=== PATIENT | male | born 1965 | race Caucasian/White ===

== ENCOUNTER 2020-07-28 16:51 | Inpatient (IN) | payer OTHER ==
[~2020-07-28] VITALS: Ht 177.8 cm; Wt 65.3 kg
[2020-07-29] MEDS ORDERED: BISACODYL10 MG RECTAL (05:20)
[2020-07-29] MEDS ORDERED: LORAZEPAM 0.50.5 MG PO (05:20)
[2020-07-29] MEDS ORDERED: NORCO 10-325 T1 EACH PO (05:21)
[2020-07-29] MEDS ORDERED: HYDROCODONE PO (05:23)
[2020-07-29] MEDS ORDERED: ATIVAN1 M1 PO (05:24)
[2020-07-29] MEDS ORDERED: NICOTINE TRANSD14 M1 TOP (05:24)
[2020-07-29] MEDS ORDERED: OXYBUTYNIN CHLO15 MG PO (05:28)
[2020-07-29] MEDS ORDERED: BASE B,POLYETHYL1 GM PO (05:29)
[2020-07-29] MEDS ORDERED: REMERON15 M2 PO (05:29)
[2020-07-29 05:40] VITALS: BP 123/84
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
[2020-07-29 08:40] VITALS: BP 132/65
--- NOTE | 2020-07-29 08:41 | NUR ---
PT IN RANDA CHAIR RESTING WITH EYES CLOSED. PT SEDATED FROM GEODON GIVEN EARILER. PT LUNGS SOUND COURSE THROUGH OUT. PT SAT RUNNING 93-96%. PT HAS SCABS TO KNEES BILATERALY FROM PREVIOUS FALLS. ENCOURAGED PT TO COUGH TO HELP CLEAR LUNG ORDONEZ. PT TOO SLEEPY TO COUGH FORCEFULLY.
[2020-07-29 09:06] LABS: ALBUMIN 2.6 g/dL (3.4-5.0); DIRECT BILIRUBIN < 0.1 mg/dL (<0.1-0.2); SGOT 14 U/L (15-37); SGPT 31 U/L (30-65); TOTAL BILIRUBIN 0.3 mg/dL (0.2-1.0); TOTAL PROTEIN 6.7 g/dL (6.4-8.2)
[2020-07-29 09:59] VITALS: BP 132/65
--- NOTE | 2020-07-29 15:00 | NUR ---
GAVE PT A DULCOLAX SUPP 10MG FOR CONSTIPATION. PT GETTING CHEST XRAY AT THIS TIME.
--- NOTE | 2020-07-29 15:10 | NUR ---
PT UP TO BSC X2 STAFF. PT HAD ALOT OF GAS OUT. PT PUT BACK TO BED. PT YELLING FOR HIS MOM AND CRYING WANTING TO SEE HER. PT YELLING FOR GOD TO HELP HIM. NOTICED PT LYING ON HIS BACK HIGHER THAN 30 DEGREES AND HE WAS COUGHING AND TRYING TO GET SPUTUM UP, PT THROAT AREA WAS TURNING RED. PT HAS HX OF TRACH. RAISED PT HOB UP HIGHER FAR IT CAN GO.
--- NOTE | 2020-07-29 16:00 | NUR ---
ASSISTED PT WITH GETTING SOME SOLID STOOL OUT OF RECTUM. PT STATED HIS BUTT HURTS. PT POSS HAS A SMALL HEMMORROID. PT WANTING MILK TO DRINK THAT WILL HELP HIM WITH STOOL. GAVE PT HONEY THICK MILK AND ADDED MIRALAX POWDER AND ALSO ADM MILK OF MAG. PT DRANK WITHOUT ANY ISSUES.
--- NOTE | 2020-07-29 17:38 | NUR ---
PT HAD LARGE BM IN BSC. PT STATED HE FELT BETTER. PT ABLE TO EAT PUREED DIET. PT ABLE TO COUGH AND CLEAR SECRETION. PT STILL WANTING TO TALK TO HIS MOM.
[2020-07-29 20:34] VITALS: BP 97/52
--- NOTE | 2020-07-29 23:46 | NUR ---
SENIOR COST ANALYST ACTIVATED AT 2320. ARRIVED TO UNIT AT 2323 TO FIND PATIENT ON LEFT SIDE WITH BLOODY EMESIS ON BED AND PATIENT. PER RN, MANUAL COMPRESSIONS GIVEN PRIOR TO RAPID RESPONSE TEAM ARRIVAL. PT WITH SPONTANEOUS PULSE AND RESPIRATIONS AT THAT TIME. CRASH CART OBTAINED AND PT PLACED ON MONITOR WITH ST RHYTHM. PT BEGINNING AGONAL RESPS AT 2325. RT AT BEDSIDE AND BEGAN TO BAG PATIENT. CODE BLUE ACTIVATED. SEE CODE BLUE FLOWSHEET FOR ADDITIONAL DETAILS. PT TX'D TO ICU.
[2020-07-29 23:55] VITALS: BP 97/52
--- NOTE | 2020-07-30 00:06 | NUR ---
Assumed care of patient at 1900. Pt in dining room during early part of shift sitting in chair at table. Pt cooperative with nursing assessment and medications. Pt takes medications whole with honey thickened liquids. Pt breathing at time of assessment was nonlabored. Pt lung sounds coarse bilaterally in lower lobes. Pt yelling out off and on throughout evening wanting non-thickened milk. Explained to pt that orders were for him to have honey-thickened liquids, risk for aspiration with thin liquids. Pt continued to be aggitated and anxious, upset stating he wanted to leave and his sister put him here. At time of shift assessment pt denied having any pain. Continued to become increasingly aggitated/anxious as evening progressed focused on wanting milk. Offered honey thickened milk and other appropriate liquids of honey consistency and pt declined, stating that he did not like the taste. When unable to redirect and get patient to stop yelling/decrease aggitation, PRNs for Haldol 5 mg and ativan 0.5 mg given per orders for aggitation and anxiety. Pt took PRNS whole with sips of honey thickened water @ 2212. Pt wanting to lay down and go to his room at approximately 2220. Pt assisted by digital recruiter to room and assisted to bed and with pericares. digital recruiter reported to this nurse that pt was coughing up thick phelgm. When this nurse went to assess and assist, pt was observed coughing up thick brownish colored phelgm. Pt repositioned to a higher sitting position. Pt continued to cough and coughing up coffee ground emesis. Pt lungs course. Pt c/o stomach pain and back pain, and continued to cough up coffee ground emesis. Charge nurse notified of rapid change of condition of pt. Charge nurse called rapid response. Pt then started to slump further down in bed and continued to cough up coffee ground colored emesis, struggling to clear air way. This nurse and ROPE MAKING MACHINE OPERATOR attempted to reposition to help pt clear air way. Pt then started to go unresponsive at approximately 2235; pt turned onto left side to prevent aspiration. Pt lost pulse and face began turning blue. CPR initiated by charge nurse with chest compressions and pulse regained. Jim oquendo called. Code team to unit and took over care of pt. Pt transferred to ICU. Pt sister notified at 2352 of pts change of condition and transfer to ICU. Dr Dover notified and discharge orders received by charge nurse at 0015. This nurse gave report to ICU nurse Allison at 0025.
--- NOTE | 2020-07-30 09:07 | EKG ---
[address] [address] ELECTROCARDIOGRAM REPORT Name: NOEMY BROOKS Room #: 526B-B DIS IN M.R.#: [id number] Admission: 07/29/20 Attend Phys: Dali Dover MD Discharge: 07/29/20 Date of : 61 Report #: [id number] [facility] Test Date: 2020-07-30 Test Time: 00:02:52 Pat Name: NOEMY BROOKS Department: Room: [facility] B Gender: M Tree Killer: EW : 1965 Requested By: Jessi Flores Order Number: [id number] MD: Luisito Stewart Measurements Intervals [place] Rate: 141 P: 65 [place]: 99 QRS: 90 QRSD: 76 T: QT: 256 QTc: 392 Interpretive Statements Sinus tachycardia Motion artifact No previous ECG available for comparison Electronically Signed On 07-30-2020 9:06:58 COMPLETIONS ENGINEER by Luisito Stewart [email or web address] <ELECTRONICALLY SIGNED> By: Luisito Stewart MD 07/30/20 0906 0002 0002 Luisito Stewart MD /LIZET
== END 2020-07-29 23:45 | disposition short-term general hospital (02) | DRG 884 ==
LOC: SBH → EROBS 07-29 04:04 → SBH 07-29 05:37
PROVIDERS: Nurse Practitioner Family; ADMIT Internal Medicine; ATTEND Psychiatry & Neurology Psychiatry
DX: F01.51 Vascular dementia, unspecified severity, with behavioral disturbance (principal); G91.2 (Idiopathic) normal pressure hydrocephalus; N40.0 Benign prostatic hyperplasia without lower urinary tract symptoms; G89.29 Other chronic pain; R13.10 Dysphagia, unspecified; G40.909 Epilepsy, unspecified, not intractable, without status epilepticus; Z87.820 Personal history of traumatic brain injury; Z79.899 Other long term (current) drug therapy
CPT/HCPCS: 10880

== ENCOUNTER 2020-07-28 19:59 | Emergency (ER) | payer OTHER ==
[~2020-07-28] VITALS: Ht 182.9 cm; Wt 77.1 kg
[2020-07-28 20:13] VITALS: BP 118/77
[2020-07-28 22:00] LABS: CALCIUM 8.7 mg/dL (8.5-10.1); CREATININE 0.7 mg/dL (0.7-1.3); POTASSIUM 4.3 mmol/L (3.5-5.1)
[2020-07-28 22:01] LABS: URINE BILIRUBIN NEGATIVE (Negative); URINE BLOOD NEGATIVE (Negative); URINE CLARITY CLOUDY; URINE COLOR YELLOW; URINE GLUCOSE-RANDOM* NEGATIVE (Negative); URINE KETONES NEGATIVE (Negative); URINE LEUKOCYTES-REFLEX NEGATIVE (Negative); URINE NITRITE-REFLEX NEGATIVE (Negative); URINE PROTEIN (DIPSTICK) NEGATIVE (Negative)
[2020-07-28 22:02] LABS: ABSOLUTE NEUTROPHILS 7.6 thou/uL (1.4-8.2); BASOPHILS 0.5 % (0.0-2.0); EOSINOPHILS 0.6 % (0.0-3.0); HEMATOCRIT 32.2 % (42.0-52.0); HEMOGLOBIN 10.6 gm/dL (14.0-18.0); LYMPHOCYTES 12.1 % (24.0-44.0); MCH 30.5 pg (26.0-34.0); MCHC 32.9 g/dL (28.0-37.0); MCV 92.9 fL (80.0-100.0); MONOCYTES 8.6 % (1.0-8.0); PLATELET COUNT 377 thou/uL (150-400); POLYS 78.2 % (36.0-66.0); RBC 3.46 mil/uL (4.50-6.00); RDW 13.7 % (10.5-14.5); WBC 9.7 thou/uL (4.0-11.0)
[2020-07-29] MEDS ORDERED: BISACODYL10 MG RECTAL (05:20)
[2020-07-29] MEDS ORDERED: LORAZEPAM 0.50.5 MG PO (05:20)
[2020-07-29] MEDS ORDERED: NORCO 10-325 T1 EACH PO (05:21)
[2020-07-29] MEDS ORDERED: HYDROCODONE PO (05:23)
[2020-07-29] MEDS ORDERED: ATIVAN1 M1 PO (05:24)
[2020-07-29] MEDS ORDERED: NICOTINE TRANSD14 M1 TOP (05:24)
[2020-07-29] MEDS ORDERED: OXYBUTYNIN CHLO15 MG PO (05:28)
[2020-07-29] MEDS ORDERED: REMERON15 M2 PO (05:29)
[2020-07-29] MEDS ORDERED: BASE B,POLYETHYL1 GM PO (05:29)
[2020-07-29 06:17] VITALS: BP 123/76
== END 2020-07-29 05:22 ==
LOC: ER 19:59 → EROBS 07-29 04:20 → ER 07-29 05:22
PROVIDERS: Emergency Medicine
DX: F91.9 Conduct disorder, unspecified (principal); R41.0 Disorientation, unspecified; R45.1 Restlessness and agitation; F17.210 Nicotine dependence, cigarettes, uncomplicated; Z20.822 Contact with and (suspected) exposure to COVID-19

== ENCOUNTER 2020-07-29 23:59 | Inpatient (IN) | payer OTHER ==
[~2020-07-29] VITALS: Ht 175.3 cm; Wt 74.0 kg
--- NOTE | ~2020-07-29 | EEG ---
[facility] [place] [address] ELECTROENCEPHALOGRAM Name: NOEMY BROOKS Room #: 238-P ADM IN M.R.#: [id number] Admission: 07/29/20 Attend Phys: Dov Severino MD Discharge: Date of : 61 Report #: [id number] THIS REPORT FOR: //name// DATE OF SERVICE: 08/04/2020 INTERPRETATION: This patient is being evaluated for altered mental status. EEG was done by placing the electrode by standard 10-20 system of electrode placement. Both referential and sequential montages were used for recording. Background activity in this patient's EEG is about 7 Hz and 15 microvolt. Photic stimulation is unremarkable. No active epileptiform activity was noticed. IMPRESSION: This patient's EEG does not demonstrate any active epileptiform activity. EEG is slow, which is nonspecific finding, which can occur with encephalopathy, effect of psychotropic medication, dementia, drowsiness, etc. Clinical correlation is recommended. Thank you very much for this referral. By: 1020 1032 Vikas Garcia MD /nt
[2020-07-29 23:49] VITALS: BP 158/83
[2020-07-29 23:58] VITALS: BP 112/88
[~2020-07-29 23:59] MED LIST: ATIVAN1 M1 PO; BASE B,POLYETHYL1 GM PO; BISACODYL10 MG RECTAL; HYDROCODONE PO; LORAZEPAM 0.50.5 MG PO; NICOTINE TRANSD14 M1 TOP; NORCO 10-325 T1 EACH PO; OXYBUTYNIN CHLO15 MG PO; REMERON15 M2 PO
[2020-07-30] VITALS (96 sets, daily range): BP systolic 78–130; BP diastolic 42–100
[2020-07-30 00:12] LABS: BE(vivo) -0.5 mmol/L (-2 to +3); HCO3 27.5 mmol/L (22.0-26.0); PO2 500.3 mmHg (80.0-100.0); pH 7.265 (7.360-7.450); sO2 99.8 % (92.0-98.0)
[2020-07-30 02:10] LABS: CALCIUM 8.8 mg/dL (8.5-10.1); HEMATOCRIT 38.2 % (42.0-52.0); HEMOGLOBIN 11.7 gm/dL (14.0-18.0); MAGNESIUM 2.6 mg/dL (1.8-2.4); MCH 29.7 pg (26.0-34.0); MCHC 30.6 g/dL (28.0-37.0); MCV 97.3 fL (80.0-100.0); POTASSIUM 4.7 mmol/L (3.5-5.1); RBC 3.93 mil/uL (4.50-6.00); RDW 14.5 % (10.5-14.5); WBC 23.5 thou/uL (4.0-11.0)
[2020-07-30 02:14] LABS: ALBUMIN 2.8 g/dL (3.4-5.0); DIRECT BILIRUBIN < 0.1 mg/dL (<0.1-0.2); SGOT 25 U/L (15-37); SGPT 34 U/L (16-63); TOTAL BILIRUBIN 0.2 mg/dL (0.2-1.0); TOTAL PROTEIN 7.2 g/dL (6.4-8.2)
[2020-07-30 02:18] LABS: INR 1.1; PROTIME 10.8 Seconds (9.3-11.4)
--- NOTE | 2020-07-30 03:36 | NUR ---
2326 - HENRIQUE CANADA CALLED ON SENIOR BEHAVIOR SUITS. THIS RN RESPONDED TO THE CODE. PT WAS FOUND UNRESPONSIVE BUT WITH A PULSE, COVERED IN COFFEE GROUND EMESIS. DR. CARDOZA, KAYY SHERMAN, HALVER MACHINE OPERATOR, MULTIPLE RT'S AND RN'S ALL PRESENT AT BEDSIDE. IV ACCESS ESTABLISHED AND PT INTUBATED BY DR. CARDOZA. REFER TO HENRIQUE BLUE SHEET. 2347 - PT TRANSFERED TO ICU ROOM 238 VIA THIS RN, HALVER MACHINE OPERATOR AND RTGRISELDA. PT CONNECTED TO ICU MONIOR, SHOWING SINUS TACHYCARDIA, CONFIRMED BY EKG. PT ASSESSED VIA ICU PROTOCOL. KAYY SHERMAN AT BEDSIDE GIVING ORDERS. PT RESTLESS AND AGITATED. PT RESTRAINED AND SEDATED VIA PROPOFOL AND VERSED GTT. 0020 - XRAY AT BEDSIDE OBTAINING CHEST XRAY TO CONFIRM ETT AND OGT PLACEMENT. 0150 - DR. VOGEL CONSULTED. CRITICAL ABG'S VERBALIZED TO PHYSICIAN. NO CHANGES ORDERED IN VENT SETTINGS. DR. VOGEL WILL SEE PT IN AM. SEED SPECIALIST ON SENIOR BEHAVIOR SUITS SPOKE WITH PTS SISTER (SEGUNDO) AND UPDATED ON THE EVENTS THAT OCCURRED AND PTS NEW ROOM NUMBER IN THE ICU.
[2020-07-30 09:17] LABS: HEMATOCRIT 29.1 % (42.0-52.0); MCH 30.4 pg (26.0-34.0); MCHC 32.5 g/dL (28.0-37.0); MCV 93.7 fL (80.0-100.0); RBC 3.11 mil/uL (4.50-6.00); WBC 15.6 thou/uL (4.0-11.0)
[2020-07-30 09:25] LABS: CREATININE 0.7 mg/dL (0.7-1.3); POTASSIUM 3.8 mmol/L (3.5-5.1)
[2020-07-30 09:46] LABS: HEMOGLOBIN 9.4 gm/dL (14.0-18.0)
--- NOTE | 2020-07-30 10:31 | NUR ---
NOTED HYPOTENSION WITH MAP <65. DR. KNUTSON UPDATED ABOUT BLOOD PRESSURES AND DROP IN HGB. ORDERS FOR 1L FLUID BOLUS AND TO START LEVOPHED IF NEEDED.
--- NOTE | 2020-07-30 11:56 | NUR ---
ECHO DONE. TELEPHONE CONSENT FROM SISTER SEGUNDO FOR EGD AND PICC LINE PLACEMENT.
--- NOTE | 2020-07-30 13:19 | NUR ---
CONSULTED TO PLACE A PICC FOR A PATIENT IN ICU ON LEVOPHED. ORDER AND CONSENT NOTED. A #5F TRIPLE LUMEN POWER PICC WAS PLACED PER POLICY AFTER A BEDSIDE TIMEOUT WAS COMPLETED. THE LINE WAS TRIMMED TO 37CM AND ADVANCED WITHOUT DIFFICULTY. A STAT CHEST XRAY WAS ORDERED FOR CONFIRMATION
--- NOTE | 2020-07-30 14:34 | NUR ---
SPOKE WITH DR. VOGEL AND DR. LUCIA ABOUT PATIENT, NOTED PATIENT HAD ABDOMINAL CT LAST NIGHT BUT WAS UNDER OLD ACCOUNT FOR 5S. NOTED FINDINGS OF CT, ORDERS FOR 1 BOTTLE MAG CITRATE TO BE GIVEN.
--- NOTE | 2020-07-30 16:38 | 2DMMODE ---
[facility] [place] [address] 2 D/M-MODE ECHOCARDIOGRAM Name: NOEMY BROOKS Room #: 238-P ADM IN M.R.#: [id number] Admission: 07/29/20 Attend Phys: Lurdes Goss MD Discharge: Date of : 61 Report #: [id number] THIS REPORT FOR: cc: [facility] - Clinic physician unknown [facility] - Clinic physician unknown Luisito Stewart MD ~ APPROVED REPORT Study performed: 07/30/2020 11:26:27 EXAM: Comprehensive 2D, Doppler, and color-flow Echocardiogram Patient Location: Bedside Room #: 238 Status: on-call BSA: 1.83 HR: 11 bpm BP: 97/58 mmHg Rhythm: NSR Other Information Study Quality: Adequate Indications Respiratory Arrest 2D Dimensions IVSd: 8.03 (7-11mm) LVOT Diam: 19.00 (18-24mm) LVDd: 38.29 mm PWd: 10.02 (7-11mm) Ascending Ao: 26.43 (22-36mm) LVDs: 26.14 (25-40mm) Aortic Root: 27.75 mm LV Single Plane 4CH: 68.53 % LV Single Plane 2CH: 70.01 % Volumes Left Atrial Volume (Systole) Single Plane 4CH: 25.24 mL Single Plane 2CH: 26.69 mL LA ESV Index: 15.00 mL/m2 Aortic Valve AoV Peak Santy.: 1.94 m/s AO Peak Gr.: 15.13 mmHg LVOT Max P.91 mmHg LVOT Max V: 1.41 m/s PHONG Vmax: 1.97 cm2 [facility] [address] [place] [address] 2 D/M-MODE ECHOCARDIOGRAM Name: NOEMY BROOKS Room #: 238-P [facility] IN .R.#: [id number] Admission: 07/29/20 Attend Phys: Ximena Pope Discharge: Date of : 61 Report #: [id number] Mitral Valve E/A Ratio: 0.8 MV Decel. Time: 110.84 ms MV E Max Santy.: 1.02 m/s MV A Santy.: 1.21 m/s MV PHT: 32.14 ms IVRT: 55.36 ms TDI E/Lateral E': 12.75 E/Medial E': 9.27 Medial E' Santy.: 0.11 m/s Lateral E' Santy.: 0.08 m/s Pulmonary Valve PV Peak Santy.: 1.81 m/s PV Peak Gr.: 13.08 mmHg Pulmonary Vein P Vein S: 0.94 m/s P Vein A: 0.49 m/s P Vein D: 0.61 m/s P Vein A Dur.: 80.7 msec P Vein S/D Ratio: 1.54 Tricuspid Valve TR Peak Santy.: 2.99 m/s RAP Estimate: 10.00 mmHg TR Peak Gr.: 35.69 mmHg PA Pressure: 46.00 mmHg Left Ventricle The left ventricle is normal size. There is normal LV segmental wall motion. There is normal left ventricular wall thickness. Left ventricular systolic function is normal. The left ventricular ejection fraction is within the normal range. LVEF is 65-70%. Mild diastolic dysfunction is present (impaired relaxation pattern). Right Ventricle The right ventricle is normal size. The right ventricular systolic function is normal. Atria The left atrium size is normal. The right atrium size is normal. Aortic Valve The aortic valve is normal in structure. No aortic regurgitation is present. There is no aortic valvular stenosis. [facility] [address] [place] [address] 2 D/M-MODE ECHOCARDIOGRAM Name: NOEMY BROOKS Room #: 238-P [facility] IN M.R.#: [id number] Admission: 07/29/20 Attend Phys: Ximena Pope Discharge: Date of : 61 Report #: [id number] Mitral Valve The mitral valve is normal in structure. There is no mitral valve regurgitation noted. No evidence of mitral valve stenosis. Tricuspid Valve The tricuspid valve is normal in structure. Trace tricuspid regurgitation. Pulmonary artery pressure is 46 mmHg. Pulmonic Valve The pulmonary valve is normal in structure. There is no pulmonic valvular regurgitation. Great Vessels The aortic root is normal in size. The ascending aorta is normal in size. IVC is dilated and collapses <50% with inspiration. Pericardium There is no pericardial effusion. <Conclusion> The left ventricle is normal size. There is normal left ventricular wall thickness. There is normal LV segmental wall motion. Left ventricular systolic function is normal. The left ventricular ejection fraction is within the normal range. LVEF is 65-70%. The right ventricle is normal size. The right ventricular systolic function is normal. The aortic valve is normal in structure. No aortic regurgitation is present. There is no aortic valvular stenosis. The mitral valve is normal in structure. There is no mitral valve regurgitation noted. No evidence of mitral valve stenosis. The tricuspid valve is normal in structure. Trace tricuspid regurgitation. Pulmonary artery pressure is 46 mmHg. There is no pericardial effusion. <ELECTRONICALLY SIGNED> By: Luisito Stewart MD 07/30/20 1638 1638 1638 Luisito Stewart MD /INF
[2020-07-31] VITALS (29 sets, daily range): BP systolic 106–144; BP diastolic 56–74
[2020-07-31 04:45] LABS: HEMATOCRIT 27.4 % (42.0-52.0); HEMOGLOBIN 8.8 gm/dL (14.0-18.0); MCH 30.2 pg (26.0-34.0); MCHC 32.2 g/dL (28.0-37.0); RBC 2.92 mil/uL (4.50-6.00); RDW 14.4 % (10.5-14.5); WBC 23.9 thou/uL (4.0-11.0)
--- NOTE | 2020-07-31 06:00 | NUR ---
PT TOLERATING VENT, HR DECREASIN TO 70'S AND MAINTAINING. SECRETIONS SLOWING DOWN, TOLERATING SEDATION, ABLE TO TITRATE LEVO
[2020-07-31 06:56] LABS: CALCIUM 7.7 mg/dL (8.5-10.1); CREATININE 0.6 mg/dL (0.7-1.3); MAGNESIUM 2.5 mg/dL (1.8-2.4); POTASSIUM 4.3 mmol/L (3.5-5.1)
--- NOTE | 2020-07-31 11:47 | NUR ---
PATIENT HAD BEDSIDE EGD DONE BY DR. LUCIA WITH GI NURSES PRESENT. ULCER NOTED, POSSIBLE PERFORATION. ORDERS FOR CT, PATIENT WILL BE TAKEN SOON RESPIRATORY THERAPIST IS AVAILABLE FOR VENT TRANSPORT. PATIENT REMAINS SEDATED ON PROPOFOL AND VERSED GTTS. LEVOPED GTT FOR BLOOD PRESSURE SUPPORT. SPOKE WITH SISTER (ALHAJI) PRIOR TO EGD AND WILL UPDATE POST CT SCAN.
--- NOTE | 2020-07-31 19:12 | NUR ---
UPDATED SISTER ON RESULTS OF EGD AND NOT ORDERS FOR CT OF CHEST. PATIENT VSS REMAIN STABLE THROUGH OUT THE REST OF SHIFT. TITRATED DOWN LEVO GTT TO 8 FROM 12. SALINE ENEMA GIVEN PER DR. VOGEL.
--- NOTE | 2020-07-31 23:15 | NUR ---
2017-PT'S EX- ANA LUISA, WHO HE HAS A SON WITH, CALLED FOR AN UPDATE ABOUT PT; SHE WAS ABLE TO GIVE HIS FOUR-DIGIT CODE AND REPORTED SHE HAD PERMISSION FROM SEGUNDO TO CALL ABOUT HIM. SHE VOICED CONCERNS ABOUT THEIR SON, WHO WAS WORRIED AND RECEIVING PIECEMEAL INFORMATION. DID EXPLAIN THAT WE TRY TO LIMIT TO ONE DESIGNATED COMMUNICATOR TO STREAMLINE CARE/COMMUNICATIONS, BUT SINCE SHE HAD THE CODE, WENT AHEAD AND GAVE A BRIEF UPDATE ON PT'S CONDITION. ANA LUISA WAS VERY PLEASANT AND UNDERSTANDING, AND APPRECIATED HAVING A MORE CLEAR PICTURE TO SHARE WITH PT'S SON.
[2020-08-01] VITALS (57 sets, daily range): BP systolic 105–129; BP diastolic 55–77
[2020-08-01 05:45] LABS: HEMATOCRIT 24.5 % (42.0-52.0); HEMOGLOBIN 7.9 gm/dL (14.0-18.0); MCH 30.7 pg (26.0-34.0); MCHC 32.5 g/dL (28.0-37.0); MCV 94.6 fL (80.0-100.0); RBC 2.59 mil/uL (4.50-6.00); RDW 14.3 % (10.5-14.5); WBC 20.1 thou/uL (4.0-11.0)
[2020-08-01 06:03] LABS: CALCIUM 7.7 mg/dL (8.5-10.1); CREATININE 0.5 mg/dL (0.7-1.3)
[2020-08-01 06:11] LABS: POTASSIUM 3.2 mmol/L (3.5-5.1)
--- NOTE | 2020-08-01 10:45 | NUR ---
POC UPDATED: PT IS ON VENT AND SEDATED. LEVO GTT. PER RN, "MAY START WEANING TRIALS.".
--- NOTE | 2020-08-01 11:40 | P ---
[facility] [place] [address] PROCEDURE REPORT Name: NOEMY BROOKS Room #: 238-P ADM IN M.R.#: [id number] Admission: 07/29/20 Attend Phys: Dov Severino MD Discharge: Date of : 61 Report #: [id number] THIS REPORT FOR: cc: [facility] - Clinic physician unknown [facility] - Clinic physician unknown Jim Qiu MD ~ DATE OF SERVICE: 07/31/2020 TIME SEEN: 10:00 a.m. PROCEDURE: Upper endoscopy. INDICATIONS: Coffee-ground emesis and distal esophageal wall thickening on a CAT scan. ANESTHESIA: Propofol for sedation per ICU nursing. DESCRIPTION OF PROCEDURE: Upper adult endoscope was introduced through the mouth, through the esophagus into the stomach into the second portion of the duodenum and then withdrawn carefully for careful inspection. There was mild gastritis, OG tube and a 10 cm 3/4 circumferential ulceration in the distal esophagus from 25-35 cm from the incisors with a small perforation within the bed of the ulcer. There was areas of heaped up tissue on the edges of the ulcer that were biopsied with a small amount of bleeding and the procedure was terminated without any medical instability. RECOMMENDATIONS: CT of the chest to assess small perforation and the possibility of any metastatic disease as ulcer could be malignant. Await biopsy results and continue the PPI infusion. <ELECTRONICALLY SIGNED> By: Jim Qiu MD 08/01/20 1140 1009 1139 Jim Qiu MD /margot
--- NOTE | 2020-08-01 15:57 | HC ---
[facility] [place] [address] CONSULTATION Name: NOEMY BROOKS Room #: 238-P ADM IN M.R.#: [id number] Admission: 07/29/20 Attend Phys: Dov Severino MD Discharge: Date of : 61 Report #: [id number] THIS REPORT FOR: cc: [facility] - Clinic physician unknown [facility] - Clinic physician unknown Luisito Stewart MD ~ CARDIOLOGY CONSULTATION REASON FOR CONSULTATION: Respiratory arrest. HISTORY OF PRESENT ILLNESS: The patient is a 55-year-old male with history of traumatic brain injury, BPH, UTI, normal pressure hydrocephalus, hypothyroidism, seizures, who was admitted to the [facility] on the for aggression and had a coughing spell and then had a respiratory arrest. There may have been some coffee-ground emesis, sounds like some CPR was performed. Never was in arrhythmia issue and he had a pulse the entire time. He was transferred to ICU. He is now intubated. He had a 12-lead EKG, which showed no acute process. He has a chest x-ray showing no acute process and he has a telemetry showing sinus rhythm and sinus tachycardia. PAST MEDICAL HISTORY: As above. SOCIAL HISTORY: Lives in a skilled facility. FAMILY HISTORY: Noncontributory. ALLERGIES: No known drug allergies. MEDICATIONS: Have been reviewed including norepinephrine, Zosyn, propofol. PHYSICAL EXAMINATION: VITAL SIGNS: Afebrile, pulse 98, respiration 20, blood pressure 84/47, sats 97%. GENERAL: The patient is intubated, sedated, no acute distress. HEENT: Oropharynx is intubated. NECK: Supple. HEART: Regular rate and rhythm. No murmurs, rubs or gallops. No appreciable JVD. LUNGS: Some coarse breath sounds bilaterally. ABDOMEN: Nontender with no rigidity. EXTREMITIES: No clubbing, cyanosis or edema. LABORATORY DATA: White count 15, hemoglobin 9, platelets 297. Coags: INR 1. Potassium 3.8, creatinine 0.7. Chest x-ray, elevated left hemidiaphragm. No effusions, no pneumothorax, normal cardiac size. Possible right infiltrate. [facility] [address] [place] [address] CONSULTATION Name: NOEMY BROOKS Room #: 238-P ADM IN M.R.#: [id number] Admission: 07/29/20 Attend Phys: Dov Severino MD Discharge: Date of : 61 Report #: [id number] ASSESSMENT: Respiratory arrest. PLAN: In summary, the patient had respiratory arrest of stairs, etiology of this is unclear. He appears to be stable from a cardiovascular standpoint. We will check an echocardiogram. We will continue to follow. <ELECTRONICALLY SIGNED> By: Luisito Stewart MD 08/01/20 1557 1149 1201 Luisito Stewart MD /nt
--- NOTE | 2020-08-01 20:03 | NUR ---
patient not progressing towards dismissal goals. patient had aspiration today at 1530. large bile out of et tube. dr reyes notified. chest xray and bed side bronch. dr burnett notified of patient condition. patient continues on levo
[2020-08-02] VITALS (94 sets, daily range): BP systolic 89–131; BP diastolic 51–78
[2020-08-02 06:13] LABS: RBC 2.48 mil/uL (4.50-6.00)
[2020-08-02 06:16] LABS: HEMATOCRIT 23.2 % (42.0-52.0); HEMOGLOBIN 7.4 gm/dL (14.0-18.0); MCH 29.9 pg (26.0-34.0); MCHC 31.9 g/dL (28.0-37.0); MCV 93.6 fL (80.0-100.0); WBC 11.8 thou/uL (4.0-11.0)
[2020-08-02 06:33] LABS: CALCIUM 7.9 mg/dL (8.5-10.1); CREATININE 0.6 mg/dL (0.7-1.3)
--- NOTE | 2020-08-02 06:33 | NUR ---
TOLERATING VENT WELL, LARGE SECRETIONS, ABLE TO WEAN LEVO, TITRATE SEDATION FOR COMFORT.
[2020-08-02 06:44] LABS: POTASSIUM 2.8 mmol/L (3.5-5.1)
[2020-08-02 10:04] LABS: BE(vivo) 2.5 mmol/L (-2 to +3); PCO2 41.3 mmHg (35.0-45.0); PO2 85.6 mmHg (80.0-100.0); pH 7.433 (7.360-7.450); sO2 96.7 % (92.0-98.0)
--- NOTE | 2020-08-02 11:52 | NUR ---
0700-ASSUMED CARE OF PT.--VW 09- UPDATED,NO NEW ORDERS. PER ,RADIOLOGIST, GASTROGRAFIN TEST UNABLE TO BE DONE. ? PLAN TO MENORRAH? KRYPTOTEXT TO (HE WAS IN EARLIER BUT I WAS UNABLE TO SPEAK W HIM).--VW
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
--- NOTE | 2020-08-02 15:30 | NUR ---
RECEIVED CALL FROM [facility] REQUESTING COVID RESULTS AND FACE SHEET FAXED TO [phone] & THIS WAS DONE. RECEIVED CALL FROM CALEB CHAIDEZ SAYING THAT DR LUCIA HAD S/W DR NEWTON & HE IS OK TO ACCEPT PT WITHOUT PT HAVING THE GASTROGRAFFIN TEST DONE. AWAITING WORD BACK FROM DR VENTURA ON HIS CONVERSATION WITH THE EDDIE PT'S GUARDIAN.
--- NOTE | 2020-08-02 16:08 | NUR ---
S/W OSBALDO IN RADIOLOGY & REQUESTED SHE CLOUD OVER PT'S X-RAY FILMS TO [facility].
--- NOTE | 2020-08-02 16:32 | NUR ---
S/W [employer] TO HAVE THEM SCRREN PT FOR SECONDARY MEDICAID & TO CONTACT SEGUNDO PT'S GUARDIAN PER HER REQUEST.
--- NOTE | 2020-08-02 16:36 | NUR ---
FAXED [facility] FORM, AWAITING TIME OF TRANSPORT. FAXED COPY OF [facility] FORM TO POD 1, ICU.
--- NOTE | 2020-08-02 17:06 | PATH ---
[facility] [address] [place] [address] PATHOLOGY RPT PROCEDURE Name: NOEMY LEIGH Room #: 238-P ADM IN M.R.#: [id number] Admission: 07/29/20 Date of : 61 Discharge: Report #: [id number] Path Case #: [id number] [facility] Accession Number: [id number] . 01 Material submitted: . esophagus - ESOPHAGEAL ULCER . 01 Clinician provided ICD-10: I46.9 R09.2 . 01 Clinical history: . ESOPHAGEAL ULCER COFFEE GROUND EMESIS . 02 Diagnosis: Gastric fundic-type mucosa, esophageal ulcer, endoscopic biopsy: - Specialized columnar epithelium with intestinal metaplasia, compatible with Yoder's metaplasia. - Negative for dysplasia. - No active ulcer present. LBQ 08/02/2020 1438 Local . 02 Comment: The above diagnosis of Yoder's esophagus is made due to presence of intestinal metaplasia and with the assumption that the biopsies were obtained from the columnar mucosa in the distal esophagus located at least 1 cm proximal to the top of the gastric folds as per the 2016 ACG guidelines. (IUV/db; 08/02/2020) . 02 Electronically signed: . Lyndsey Mack MD, Pathologist NPI- [id number] . 01 Gross description: . Received in formalin labeled "Noemy Leigh, biopsy esophageal ulcer" is a fragment of galindo-brown soft tissue measuring 0.4 x 0.3 x 0.3 cm. The specimen is submitted entirely in A1. ([facility]; 08/01/2020) GZA/GZA 08/01/2020 1643 Local . 02 Pathologist provided ICD-10: K22.70 . 02 CPT . 317397 Specimen Comment: A courtesy copy of this report has been sent to [phone], [place] [address] PATHOLOGY RPT PROCEDURE Name: NOEMY LEIGH Room #: 238-P [facility] IN .R.#: [id number] Admission: 07/29/20 Date of : 61 Discharge: Report #: [id number] Path Case #: [id number] Specimen Comment: [id number] Specimen Comment: Report sent to / DR NAVA Performed at: 01 [facility] [place] [address] [place] [address] [address], [place] [id number] MD Anselmo Parker MD Phone: [phone] Performed at: [address] [id number] MD Lyndsey Mack MD Phone: [phone]
[2020-08-03] VITALS (70 sets, daily range): BP systolic 84–115; BP diastolic 49–71
[2020-08-03 05:31] LABS: HEMATOCRIT 23.9 % (42.0-52.0); HEMOGLOBIN 7.8 gm/dL (14.0-18.0); MCH 30.6 pg (26.0-34.0); MCHC 32.8 g/dL (28.0-37.0); RBC 2.57 mil/uL (4.50-6.00); RDW 14.1 % (10.5-14.5); WBC 6.4 thou/uL (4.0-11.0)
[2020-08-03 05:45] LABS: CALCIUM 8.1 mg/dL (8.5-10.1); CREATININE 0.5 mg/dL (0.7-1.3); POTASSIUM 3.6 mmol/L (3.5-5.1)
--- NOTE | 2020-08-03 05:55 | NUR ---
TOLERATING VENT, LARGE AMT SECRETIONS, STRONG COUGH/GAG, VSS, REMAINS OFF LEVOPHED WITH MAPS >60.
--- NOTE | 2020-08-03 12:10 | NUR ---
S/W [facility] AT [facility] THIS AM TO GET A STATUS ON TRANSFER TO [facility] FOR ESOPHAGEAL STENT. RECEIVED CALL BACK SAYING THAT SINCE THIS PT IS ON A VENT & MULTIPLE GTTS WOULD HVE TO GO TO AN ICU BED TO BE MONITORED WHILE WAITING FOR TEST TO BE DONE & ICU CURRENTLY FULL BUT HOPEFUL FOR BED OPENING LATER TODAY. NOTFIIED DR VENTURA WHO HAS S/W DR DIAZ & RECEIVED OF TO TRANSFER THIS PT TO [facility] FOR ESOPHAGEAL STENT. PIE BOTTOMER UPDATED WELL.
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
--- NOTE | 2020-08-03 12:30 | EEG ---
[facility] [place] [address] [address] [place] [address] ELECTROENCEPHALOGRAM Name: NOEMY BROOKS Room #: 238-P ADM IN M.R.#: [id number] Admission: 07/29/20 Attend Phys: Dov Severino MD Discharge: Date of : 61 Report #: [id number] THIS REPORT FOR: //name// DATE OF SERVICE: 08/01/2020 This patient is being evaluated for altered mental status. EEG was done by placing the electrode by standard 10-20 system of electrode placement. Both referential and sequential montages were used for recording. Background activity in this patient's EEG is about 4-5 Hz and 10 microvolts. There is a low voltage activity. Photic stimulation is unremarkable. Background activity is unchanged. IMPRESSION: This is a severely abnormal EEG because it is disorganized and poorly formed. That is a nonspecific abnormality, which can occur with encephalopathy, effect of psychotropic medication, dementia, etc. Clinical correlation is recommended. <ELECTRONICALLY SIGNED> By: Vikas Garcia MD 08/03/20 1230 46 52 Vikas Garcia MD /nt
--- NOTE | 2020-08-03 17:28 | NUR ---
RECEIVED CALL THIS AFTERNOON FROM [facility] REQUESTING AN UPDATED COVID TEST. NOTIFIED DR VENTURA IMMEDIATELY & IT WAS ORDERED. FAXED RESULT SOON IT WAS AVAILABLE & S/W [facility] & THEY S/W DR NEWTON WHO SAID IT WAS TOO LATE TO DO THE PROCEDURE & TO CALL EARLY POSSIBLE TO INITIATE TRANFER AGAIN TOMORROW. DR VENTURA INFORMED.
--- NOTE | 2020-08-03 20:17 | NUR ---
PATIENT REMAINS INTUBATED ON MINIMAL VENT SETTINGS. VSS; PLAN TO TRANSFER TO [facility] 08/04/2020 PER [employer] BRANCH MANAGER. SISTER UPDATED.
[2020-08-04] VITALS (45 sets, daily range): BP systolic 84–119; BP diastolic 44–69
[2020-08-04 05:10] LABS: CALCIUM 8.4 mg/dL (8.5-10.1); CREATININE 0.5 mg/dL (0.7-1.3); POTASSIUM 3.7 mmol/L (3.5-5.1)
--- NOTE | 2020-08-04 09:08 | PATH ---
[facility] [address] [place] [address] PATHOLOGY RPT PROCEDURE Name: NOEMY BROOKS Room #: 238-P ADM IN M.R.#: [id number] Admission: 07/29/20 Date of : 61 Discharge: Report #: [id number] Path Case #: [id number] Note [facility] Accession Number: [id number] TESTS RESULT FLAG UNITS REF RANGE LAB Clinician Provided Cytology Information No. of containers..01 Other (Miscellaneous) Source: BRONCH WASH DIAGNOSIS: 02 BRONCH WASH NEGATIVE FOR MALIGNANT EPITHELIAL CELLS. REACTIVE BRONCHIAL CELLS ARE PRESENT. THIS INTERPRETATION INCLUDES EVALUATION OF A CELL BLOCK. SCANT CELLULARITY. RARE SQUAMOUS EPITHELIAL CELLS AND NUMEROUS FUNGAL HYPHAL/YEAST FORMS, FAVOR ORAL CONTAMINATION. Pathologist ICD10: 02 R09.2 Signed out by: 02 Lyndsey Mack MD, Pathologist NPI- [id number] Performed by: 01 Genevieve Saab, [employer] ([facility]) Gross description: 01 5ML, YELLOW, 1TP 1CB /LCS 08/02/2020 0713 Local FLAG LEGEND: L-Low Normal,H-High Normal,LL-Alert Low,HH-Alert High <-Panic Low,>-Panic High,A-Abnormal,AA-Critical Abnormal Performed at: [address] [place] [address] [place] [address] Anselmo Parker MD, [address] [address] Lyndsey Mack MD, Specimen Comment: A courtesy copy of this report has been sent to [phone] Specimen Comment: Report sent to DR KNUTSON Specimen Comment: A duplicate report has been generated due to demographic updates. Performed at: [address], [place], [place] [id number] [address] [address] PATHOLOGY RPT PROCEDURE Name: NOEMY BROOKS Room #: 238-P ADM IN M.R.#: [id number] Admission: 07/29/20 Date of : 61 Discharge: Report #: [id number] Path Case #: [id number] MD Anselmo Parker MD Phone: [phone]
--- NOTE | 2020-08-04 10:35 | NUR ---
S/W [facility] THIS AM AT 0800 & THEN THEY CALLED BACK AFTER A FEW MINUUTES SAYING THEY HAD A BED FOR NO STAFF TO COVER IT. INFORMED DR VENTURA OF THIS AND HE NOW STATES WE SHOULD GET MRI & EEG REC. BY NEURO FIRST SO HOLD ON ANY TRANSFER TODAY. DR VENTURA TO CALL PT'S SISTER AND INFORM HER OF THE ABOVE.
--- NOTE | 2020-08-04 10:38 | NUR ---
[facility] INFORMED TO HOLD OFF ON TRANSFER FOR TODAY.
[2020-08-05] VITALS (82 sets, daily range): BP systolic 84–136; BP diastolic 40–76
--- NOTE | 2020-08-05 06:07 | NUR ---
Patient not progressing towards goals. Plan to transfer when beds are available.
--- NOTE | 2020-08-05 09:19 | NUR ---
RECEIVED CALL FROM DR VENTURA TO PROCEED WITH TRANSFER TO [facility] TODAY. S/W ZOLTAN AT [facility] & THEY ARE REQUESTING LATEST VITAL SIGNS, LAST PROGRESS NOTES, AND RADIOLOGY REPORTS, THESE WER FAXED TO [phone]. RECEIVED CALL BACK FROM [facility] & ICU IS FULL, DR NEWTON AWARE OF PT NEEDING TO TRANSFER, DR VENTURA INFORMED & SOON THERE IS A ICU BED THEY WILL PUT THE CASTINGS DRAFTER IN TOUCH WITH DR VENTURA.
--- NOTE | 2020-08-05 10:03 | NUR ---
NPO start of day 6. If pt does not transfer to new facility, and TF not feasible, then recommend TPN 15%dex, 5%AA, no lipids. Reach goal of 85ml/hr
--- NOTE | 2020-08-05 12:08 | NUR ---
[facility] NOW ASKING FOR A NEW COVID TEST. DR VENTURA & MARTHA RN ALERTED TO THIS NEED. DR VENTURA ALSO WANTS TO TRY . S/W MALLIKA AT [facility] & FAXED FACE SHEET, & CLINICALS & DC FEDERAL JUDGE S/W RADIOLOGY TO HAVE FIMS CLUDED OVER. DR VENTURA NOTIFIED.
--- NOTE | 2020-08-05 15:29 | NUR ---
S/W [facility] AT 1200 TO SEE IF THEY WOULD BE ABLE TO ACCEPT PT TO PLACE ESOPHAGEAL STENT. FAXED INFO TO THEM & RECEIVED CALL BACK DECLINING ADMISSION. S/W [facility] DOOR PULLER & FAXED INFO FOR THEIR REVIEW. RECEIVED CALL BACK SAYING THEIR ICU WAS AT CAPACITY. AWAITING REPEAT COVID TEST RESULTS FOR [facility]. S/W [facility] AGAIN TO INQUIRE ABOUT RESEARCH & THEY ARE CLOSED TO ADMISSIONS. S/W FIDEL FROM [facility] & FAXED REFERRAL INFO TO HER. THEY HAVE AN ESOPHAGEAL STENT BUT NOT NO ICU BED AT THIS TIME. SHE SAYS TO TRY BACK AROUND 1640. FOLLOWING.
--- NOTE | 2020-08-05 16:08 | NUR ---
>>>>>>>>>>>>>>in mid am, Marci Ken- sister called to inquire regarding update. Rn returned call updating on pt status included pt on vent with sedation and an amnesic medication. plan to transfer initially to [facility], or if needed. >>>>>>>>>>>>>>1200 obtained covid-19 sample, sent to lab. kary administered this am, decreasing amount of secretions per ett with clear very light green drainage. og tube remains clamped. >>>>>>>>>>>>>>about 1500, Dr. Qiu, GI present, updated. ok to use low wall intermittent suction. >>>>>>>>>>>>>>[address] Benedict, call returned. updated on family request for DNR status and pharmacy suggestion for PPN for nutrition.
--- NOTE | 2020-08-05 17:06 | NUR ---
RECEIVED CALL BACK FROM [facility] & SHE THINKS THEY WILL HAVE A BED IF THEIR GI DR IS ABLE TO ACCEPT PT. THEY WILL HAVE HIM REACH OUT TO DR VENTURA. GAVE FIDEL ASHHAND BOX FOLDER PHONE NUMBER & ICU POD 1 #. DR VENTURA UPDATED ON THE ABOVE.
--- NOTE | 2020-08-05 18:00 | NUR ---
>>>>>>>>>>>>>[facility] transfer center called to inquire regarding Covid-19 results. no results at this time. Rn to return call when available. >>>>>>>>>>>>>per phone call, RN spoke with Dr. Benedict, the transfer to another facility and surgery has been discontinued related to the family request and there is discussion of pallative care. the family will call to obtain permission to visit pt. (the requesting family members are the sister- Marci Ken and the pt's son.) >>>>>>>>>>>>>RN notified [facility] Call Center that the family requested discontinuation of transfer to [facility] and surgery related to change in plan of care - pallative care.
--- NOTE | 2020-08-05 22:38 | NUR ---
Patient did not tolerate sedation vacatin very long. Poor neuro response. Withdrawls from pain, did not follow commands or track. Did open eyes spontaneously. HR increased and respirations increased. Was not able to keep sedation off very long.
[2020-08-06] VITALS (36 sets, daily range): BP systolic 85–129; BP diastolic 51–85
[2020-08-06 04:35] LABS: HEMATOCRIT 26.1 % (42.0-52.0); HEMOGLOBIN 8.3 gm/dL (14.0-18.0); MCH 29.6 pg (26.0-34.0); MCHC 31.9 g/dL (28.0-37.0); MCV 92.6 fL (80.0-100.0); RBC 2.82 mil/uL (4.50-6.00); RDW 14.3 % (10.5-14.5)
--- NOTE | 2020-08-06 06:13 | NUR ---
Still large amounts of gastric contents in ETT. VSS. Need nutrition consult. Plan to further discuss with family patient goals and plan of care. Not progressing towards goals.
--- NOTE | 2020-08-06 10:00 | NUR ---
resp rate 30-40, labored resp, st- 116, sao2 down to 81%. sedation vacation completed, sedation restarted.
--- NOTE | 2020-08-06 17:28 | NUR ---
Kristine Ken- DPOA/sister called ICU to inquire regarding pt status. phone call returned, updated on pt status. updated, Dr. Franklin, [facility] physician has been consulted. she and pt's son are requesting to visit pt tomorrow. spoke with CLAIRE Tripp ICU Charge Nurse and with CLAIRE Butlerenvironmental health inspector, then called family again to confirming 2 designated visitors able to visit for 15 minutes. Kristine is thankful and appreciative.
[2020-08-07] VITALS (31 sets, daily range): BP systolic 85–129; BP diastolic 44–75
--- NOTE | 2020-08-07 03:28 | NUR ---
ASSUMED CARE OF PATIENT AT 1900. VSS, REMAINS SEDATED AND INUBATED. GREEN BILE NOTED FREQUENTLY IN ET TUBE AND OG TUBE. NO OTHER S/S OF DISTRESS. NO PRORESSING TOWARDS POC GOALS.
--- NOTE | 2020-08-07 08:00 | NUR ---
at 0720, aspirated on copious amounts bile, ett suctioned by RT Marisabel. sao2 down to 78%, fio2 briefly increased to 100%. fio2 decreased to 50% at 0800.
--- NOTE | 2020-08-07 11:50 | NUR ---
maksim mix-dpoa/sister and finesse toth-son both present to see pt. discussed pt status- need for sedation while on vent to prevent coughing and bile from getting into his lungs. pt has ability to hear so they may speak with him. decision made for compassionate extubation 08/08 at 1200 or 1300 with son planning to be present. provided support.
[2020-08-08] VITALS (23 sets, daily range): BP systolic 87–135; BP diastolic 45–77
--- NOTE | 2020-08-08 09:05 | NUR ---
Nutrition: noted plans for palliative extubation today, comfort care. RD will defer further evals.
--- NOTE | 2020-08-08 09:29 | NUR ---
ASSUMED CARE OF PT AT 0700. RODNEY AT BEDSIDE AT 0915, NO NEW ORDERS GIVEN
--- NOTE | 2020-08-08 14:49 | NUR ---
Per MD notes of Comfort Care. CM available for needs.
--- NOTE | 2020-08-09 03:57 | NUR ---
PT ON COMFORT CARE IN ROOM 436. PT SON, IVANNA AT BEDSIDE AT START OF SHIFT. PT OPENING EYES WITH VERBAL AND TACTILE STIMULATION. PUPILS FIXED, NOT TRACKING. FLACC OF 0 WITH STIMULATION. MORPHINE CONTINUES INFUSING AT ORDERED RATE WITHOUT ISSUE. PT ON 1.5L O2 VIA NC. PT ASSESSED WITH RHONCHI LUNG SOUNDS WITH COPIOUS, FROTHY SPUTUM. PT WITH SHALLOW RESPIRATORY PATTERN, INTERMITTENT APNEA NOTED, UP TO 15SEC. INTERMITTENT ORAL SUCTIONING PROVIDED. PT NOTED TO BITE DOWN WHEN SUCTIONED. PT WITH PITTING EDEMA TO BUE AND BLE. PT RESTING IN BED THROUGHOUT SHIFT, FREQUENT REPOSITIONING ENCOURAGED. UPON ROUNDING, PT NOTED TO HAVE BROWN TINGED SPUTUM, CONTINUED SHALLOW RESPIRATIONS WITH INTERMITTENT APNEA, LESSENED OCCURENCE OF BITING DOWN WHEN SUCTIONED. FLACC REMAINS AT 0. FREQUENT MONITORING WILL CONTINUE.
--- NOTE | 2020-08-09 12:04 | NUR ---
ASSUMED CARE OF PATIENT AT 07:45 SUCTIONED BROWN FROTHY FOAM FROM MOUTH. PT NON VERBAL BUT FLICKED OPEN EYES. REPOSITIONED MADE COMFORTABLE. BELL CATH TO D/D WITH 100 CC IN BELL BAG. AT 0800 CALLED TO ROOM BY CHAPLAIN RADHA MI PATIENT HAD NO PULSE EYEAS FIXED. NO RESPIRATIONS. CALLED SECOND NURSE TO ROOM. CALLED DR KNUTSON AND FOLLOWED PACKET COMPLETED INCLUDING CALLING [employer]. FAMILY CALLED SON CAME TO FACILITY. LEFT AT 12:00 WILL GET BODY READY FOR SECURITY TO [facility] TESTER. IV DCD BELL DC EARLIER.
--- NOTE | 2020-08-09 12:38 | NUR ---
PATIENT'S BODY READY FOR HOME SECURITY CALLED AT THIS TIME.
--- NOTE | 2020-08-09 14:35 | NUR ---
HOME HERE TO TRANSPORT BODY TO HOME AT 14:08
== END 2020-08-09 14:11 | DRG 870 ==
LOC: ICU 23:59 → 4S 08-08 17:47
PROVIDERS: Hospitalist; Internal Medicine Pulmonary Disease; Nurse Practitioner; Nurse Practitioner Family; Pediatrics; ADMIT Hospitalist; ATTEND Hospitalist
PROC: 0BJ08ZZ Inspection of Tracheobronchial Tree, Via Natural or Artificial Opening Endoscopic (ICD-10-PCS; principal; 2020-08-01)
PROC: 0BB78ZX Excision of Left Main Bronchus, Via Natural or Artificial Opening Endoscopic, Diagnostic (ICD-10-PCS; principal; 2020-08-01)
PROC: 5A1955Z Respiratory Ventilation, Greater than 96 Consecutive Hours (ICD-10-PCS; principal; 2020-08-01)
PROC: 5A1935Z Respiratory Ventilation, Less than 24 Consecutive Hours (ICD-10-PCS; principal; 2020-08-01)
PROC: 0DJ08ZZ Inspection of Upper Intestinal Tract, Via Natural or Artificial Opening Endoscopic (ICD-10-PCS; principal; 2020-08-01)
DX: A41.9 Sepsis, unspecified organism (principal); J69.0 Pneumonitis due to inhalation of food and vomit; J96.00 Acute respiratory failure, unspecified whether with hypoxia or hypercapnia; K92.2 Gastrointestinal hemorrhage, unspecified; I46.9 Cardiac arrest, cause unspecified; Z20.822 Contact with and (suspected) exposure to COVID-19
CPT/HCPCS: 10078; 10102; 27000